=== PATIENT | female | born 2000 | race Caucasian/White ===

== ENCOUNTER 2022-03-11 16:20 | Emergency (ER) | payer OTHER ==
[~2022-03-11] VITALS: Ht 170.2 cm; Wt 113.4 kg
[2022-03-11] MEDS ORDERED: ACETAMINOPHEN 325 MG TAB PO ONE (16:30)
[2022-03-11] MEDS ORDERED: CLONAZEPAM 0.5 MG TAB PO ONE (16:30)
[2022-03-11] MEDS ORDERED: SODIUM CHLORIDE 0.9% 1000ML 1,000 ML IV ONE (16:30)
[2022-03-11] MEDS ORDERED: IBUPROFEN600 MG PO (17:28)
[2022-03-11 17:30] VITALS: BP 110/84
== END 2022-03-11 17:36 | disposition home or self-care (01) ==
LOC: ER 16:24
DX: R50.9 Fever, unspecified (principal); U07.1 COVID-19; R05.9 Cough, unspecified; R94.31 Abnormal electrocardiogram [ECG] [EKG]
CPT/HCPCS: 93005; 99284; J7030